=== PATIENT | female | born 1950 | race Caucasian/White ===

== ENCOUNTER 2019-05-14 11:09 | Outpatient (CLI) | payer MEDICARE, SELFPAY ==
--- NOTE | 2019-05-14 | XR_ITS ---
WS: [id number] FINGER LEFT TECHNIQUE: 3 views of the left First finger CLINICAL INFORMATION: CHRONIC THUMB PAIN LEFT COMPARISON: None. FINDINGS: Left thumb appears normal. No acute fractures. Normal soft tissues. XR/XR finger LT min 2V [id number] IMPRESSION: Normal left thumb
== END 2019-05-14 11:10 | disposition home or self-care (01) ==
LOC: RADOUTREAD 11:25
PROVIDERS: Family Provider Family Medicine; PCP Family Medicine; Visit Provider Family Medicine
DX: Z01.89 Encounter for other specified special examinations (principal)

== ENCOUNTER → 2021-01-06 08:40 | Outpatient (BNVA) | payer MEDICARE, SELFPAY | PROVIDERS: Family Provider Family Medicine; PCP Family Medicine; Visit Provider Podiatrist Foot & Ankle Surgery | DX: M79.672 Pain in left foot (principal); M79.671 Pain in right foot | CPT/HCPCS: 73630 ==

== ENCOUNTER 2021-03-25 07:05 | Outpatient (CLI) | payer MEDICARE, SELFPAY ==
--- NOTE | 2021-03-25 07:15 | US_ITS ---
WS: [id number] ULTRASOUND SOFT TISSUES LEFT foot, limited. HISTORY: to rule out morales's neuroma COMPARISON: None available. TECHNIQUE: 2-D and color Doppler imaging is submitted. Patient is describing pain between the fourth and fifth metatarsal heads. Ultrasound will be performe d of the fourth and fifth interspace. There is no soft tissue abnormality or increased vascularity. No fluid identified between the fourth and fifth metatarsal heads or toes. US/US soft tissue/extremity [id number] IMPRESSION: Negative ultrasound between the fourth and fifth metatarsal heads.
== END 2021-03-25 07:06 | disposition home or self-care (01) ==
LOC: RAD 07:09
PROVIDERS: PCP Family Medicine; Visit Provider Podiatrist Foot & Ankle Surgery
DX: M77.42 Metatarsalgia, left foot (principal)
CPT/HCPCS: 76882

== ENCOUNTER 2022-10-22 12:25 | Outpatient (CLI) | payer OTHER, SELFPAY ==
--- NOTE | 2022-10-22 12:31 | XR_ITS ---
WS: [id number] SCREENING DEXA SCAN [employer] CLINICAL INFORMATION: POSTMENOPAUSAL COMPARISON: None. FINDINGS: The L1-L4 bone mineral density measures 1.05. This corresponds to a T score score of -1.1 and Z score of 0.4. Left femoral neck bone mineral density measures 0.93. This corresponds to a T score of -0.6 and Z sco re of 0.8. Right femoral neck bone mineral density measures 0.87. This corresponds to a T score of -1.1 of and Z score of 0.3. Mean femoral neck bone mineral density measures 0.90. This corresponds to a T score of -0.8 and Z sco re of 0.6. IMPRESSION: Osteopenia lumbar spine at the lower end of the range. Normal mean bone mineralization femoral necks at the upper end of the range. Patient's FRAX calculated 10 year probability for major osteoporotic fracture is 10.0% and osteoporot ic hip fracture is 1.5%.
== END 2022-10-22 12:26 | disposition home or self-care (01) ==
PROVIDERS: PCP Family Medicine; Visit Provider Family Medicine
DX: Z13.820 Encounter for screening for osteoporosis (principal); Z78.0 Asymptomatic menopausal state; M85.88 Other specified disorders of bone density and structure, other site
CPT/HCPCS: 77080